=== PATIENT | female | born 1990 | race Caucasian/White ===

== ENCOUNTER 2022-03-18 05:02 | Day surgery (SDC) | payer OTHER ==
[2022-03-13 12:50] VITALS: BMI 24.7
[2022-03-18] MEDS ORDERED: MIDAZOLAM HCL 2 MG/2 ML SINGLE DOSE VIAL ONE (14:10)
[2022-03-18] MEDS ORDERED: ceFAZolin SODIUM 1 GM VIAL IVPB ONE (14:35)
[2022-03-18] MEDS ORDERED: oxyCODONE HCL 5 MG TABLET PO PRN ×2 (15:03)
[2022-03-18] MEDS ORDERED: ONDANSETRON 4 MG/2 ML VIAL IVPUSH PRN (15:03)
[2022-03-18] MEDS ORDERED: LACTATED RINGERS SOLUTION 1,000 ML IV SCH (15:15)
[2022-03-18 15:23] VITALS: TEMP 97.7
[2022-03-18 16:23] VITALS: BP 125/65; PULSE 85
== END 2022-03-18 16:25 | disposition home or self-care (01) ==
LOC: JASU-SURG 05:02
PROVIDERS: ATTEND Obstetrics & Gynecology
PROC: 10D17ZZ Extraction of Products of Conception, Retained, Via Natural or Artificial Opening (ICD-10-PCS; principal; 2022-03-18 11:00)
DX: O02.1 Missed abortion (principal); Z3A.09 9 weeks gestation of pregnancy
CPT/HCPCS: 86850; 86900; 86901; 88305-TC; 94760

== ENCOUNTER 2023-09-15 09:10 | Inpatient (IN) | payer OTHER ==
[2023-09-15 10:44] LABS: BASO % 0.6 % (0-2.0); EOS % 0.4 % (0-4.5); HEMATOCRIT 33.8 % (32.4-45.2); HEMOGLOBIN 10.9 GM/dL (10.7-15.3); LYMPH % 21.2 % (8-40); MCHC 32.2 g/dl (32.0-36.0); MEAN CELL VOLUME 74.6 fl (80-96); MEAN PLT VOLUME 7.6 fl (7.5-11.1); MONO % 4.8 % (3.8-10.2); PLATELET COUNT 376 10^3/uL (134-434); RBC 4.53 M/mm3 (3.60-5.2); RDW 17.4 % (11.6-15.6); WHITE BLOOD COUNT 10.5 K/mm3 (4.0-10.0)
[2023-09-15] MEDS ORDERED: CITRIC ACID/SODIUM CITRATE 30 ML UNIT-DOSE CUP PO ONE (10:47)
[2023-09-15 10:49] VITALS: BMI 32.5
[2023-09-15 10:58] LABS: ACTIVATED PTT 26.5 SECONDS (25.2-36.5); INR 0.96 (0.83-1.09); PROTHROMBIN TIME (PATIENT) 11.1 SEC (9.7-13.0)
[2023-09-15] MEDS ORDERED: ELECTROLYTE-148 SOLN 1,000 ML IV SCH (11:00)
[2023-09-15 11:07] LABS: CALCIUM 8.8 mg/dL (8.5-10.1)
[2023-09-15 11:08] LABS: BLOOD UREA NITROGEN 8.1 mg/dL (7-18)
[2023-09-15 11:11] LABS: CREATININE 0.6 mg/dL (0.55-1.3)
[2023-09-15] MEDS ORDERED: DEXTROSE 5%-LACTATED RINGERS 1,000 ML IV SCH (15:30)
[2023-09-15] MEDS ORDERED: KETOROLAC TROMETHAMINE 30 MG/1 ML VIAL ONE (15:35)
[2023-09-15] MEDS ORDERED: SODIUM CHLORIDE 0.9% P/F 10 ML VIAL IJ ONE (15:35)
[2023-09-15] MEDS ORDERED: morphine SULFATE/PF 1 MG/2 ML (2cc Syringe - QUVA) ONE (15:35)
[2023-09-15] MEDS ORDERED: ONDANSETRON 4 MG/2 ML VIAL ONE ×2 (15:35→20:21)
[2023-09-15] MEDS ORDERED: FENTANYL CITRATE/PF 50 MCG/ML VIAL ONE (15:35)
[2023-09-15] MEDS ORDERED: ceFAZolin SODIUM 1 GM VIAL ONE (15:35)
[2023-09-15] MEDS ORDERED: ePHEDrine SULFATE 50 MG/1 ML AMPULE ONE ×3 (15:36→16:01)
[2023-09-15] MEDS ORDERED: morphine SULFATE/PF 1 MG/2 ML (2cc Syringe - QUVA) IT ONE (15:48)
[2023-09-15] MEDS ORDERED: OXYTOCIN 30 UNITS in 0.9% NS 30 UNIT/500 ML INFUS.BAG IVPB ONE (16:14)
[2023-09-15] MEDS ORDERED: OXYTOCIN 20 UNITS in 0.9% NS 20 UNIT/1,000 ML INFUS.BAG IV ONE (16:15)
[2023-09-15 16:56] LABS: CORD BASE EXCESS -13.5 mmol/L (0-2); CORD PCO2 56.8 mmHg (30-78); CORD pH 7.094 (7.14-7.44)
[2023-09-15 16:58] LABS: CORD BASE EXCESS -15.4 mmol/L (0-2); CORD HCO3 17.6 mmHg (20-29); CORD PCO2 74.4 mmHg (30-78)
[2023-09-15 17:00] LABS: CORD pH 6.993 (7.14-7.44)
[2023-09-15] MEDS ORDERED: ONDANSETRON 4 MG/2 ML VIAL IVPB PRN (17:05)
[2023-09-15] MEDS ORDERED: IBUPROFEN 600 MG TABLET (FP) PO PRN (17:08)
[2023-09-15] MEDS ORDERED: OXYTOCIN 20 UNITS in 0.9% NS 20 UNIT/1,000 ML INFUS.BAG IV SCH ×2 (17:15→17:30)
[2023-09-15] MEDS ORDERED: BENZOCAINE 28 GM HEMORRHOIDAL OINTMENT TP PRN (17:26)
[2023-09-15] MEDS ORDERED: BENZOCAINE 20% 57 GM BOTTLE TP PRN (17:26)
[2023-09-15] MEDS ORDERED: WITCH HAZEL 50% (TUCKS) 40 PAD/JAR PAD TP PRN (17:26)
[2023-09-15] MEDS: ACETAMINOPHEN 1000 MG/100 ML BAG IVPB SCH ×2 (18:41→23:15)
[2023-09-15] MEDS ORDERED: SODIUM CHLORIDE 500 ML IV STA (18:43)
[2023-09-15 19:24] LABS: BASO % 0.2 % (0-2.0); HEMATOCRIT 27.9 % (32.4-45.2); LYMPH % 6.2 % (8-40); MCH 23.6 pg (25.7-33.7); MCHC 32.4 g/dl (32.0-36.0); MEAN PLT VOLUME 7.4 fl (7.5-11.1); MONO % 2.4 % (3.8-10.2); NEUT % 91.2 % (42.8-82.8); PLATELET COUNT 332 10^3/uL (134-434); RBC 3.82 M/mm3 (3.60-5.2); RDW 17.5 % (11.6-15.6); WHITE BLOOD COUNT 18.6 K/mm3 (4.0-10.0)
[2023-09-15 19:49] LABS: ANISOCYTOSIS 2+; MACROCYTOSIS 0
[2023-09-15] MEDS: SENNOSIDES/DOCUSATE COMBO (SENNA PLUS) TABLET (UD) PO SCH (23:23)
[2023-09-16] MEDS: CEFAZOLIN SODIUM 2 GM in DEXTROSE 5%-WATER 100 ML IVPB SCH ×3 (00:33→17:30)
[2023-09-16] MEDS: ACETAMINOPHEN 1000 MG/100 ML BAG IVPB SCH ×2 (06:00→11:54)
[2023-09-16] MEDS: HEPARIN NA (PORCINE) 5,000 UNITS/ML 1ML VIAL SQ SCH ×3 (06:10→21:24)
[2023-09-16] MEDS: SIMETHICONE 80 MG TAB.CHEW (FP) PO PRN ×2 (06:36→20:12)
[2023-09-16 07:35] LABS: BASO % 0.1 % (0-2.0); HEMATOCRIT 23.1 % (32.4-45.2); HEMOGLOBIN 7.1 GM/dL (10.7-15.3); LYMPH % 13.9 % (8-40); MCH 22.9 pg (25.7-33.7); MCHC 30.6 g/dl (32.0-36.0); MEAN CELL VOLUME 74.8 fl (80-96); MEAN PLT VOLUME 7.4 fl (7.5-11.1); MONO % 7.5 % (3.8-10.2); NEUT % 78.5 % (42.8-82.8); PLATELET COUNT 310 10^3/uL (134-434); RBC 3.09 M/mm3 (3.60-5.2); RDW 17.5 % (11.6-15.6); WHITE BLOOD COUNT 15.8 K/mm3 (4.0-10.0)
[2023-09-16] MEDS ORDERED: ENOXAPARIN NA (PORCINE) 40 MG/0.4 ML DISP.SYRIN SQ SCH (10:00)
[2023-09-16] MEDS: PRENATAL VITAMINS W/ FOLIC ACID TABLET (FP) PO SCH (10:25)
[2023-09-16] MEDS ORDERED: oxyCODONE HCL 5 MG TABLET PO PRN (16:00)
[2023-09-16] MEDS ORDERED: BISACODYL 10 MG SUPP.RECT RC PRN (17:05)
[2023-09-16] MEDS: ACETAMINOPHEN 325 MG TABLET (FP) PO PRN (20:16)
[2023-09-16] MEDS: SENNOSIDES/DOCUSATE COMBO (SENNA PLUS) TABLET (UD) PO SCH (21:24)
[2023-09-17] MEDS: SIMETHICONE 80 MG TAB.CHEW (FP) PO PRN (04:28)
[2023-09-17] MEDS: ACETAMINOPHEN 325 MG TABLET (FP) PO PRN (04:29)
[2023-09-17] MEDS: HEPARIN NA (PORCINE) 5,000 UNITS/ML 1ML VIAL SQ SCH ×2 (09:42→21:17)
[2023-09-17] MEDS: PRENATAL VITAMINS W/ FOLIC ACID TABLET (FP) PO SCH (09:42)
[2023-09-17] MEDS: FERROUS SO4 325 MG TABLET (FP) PO SCH ×2 (11:05→21:16)
[2023-09-17] MEDS: SENNOSIDES/DOCUSATE COMBO (SENNA PLUS) TABLET (UD) PO SCH (21:17)
[2023-09-18 07:50] LABS: BASO % 0.4 % (0-2.0); EOS % 1.4 % (0-4.5); HEMATOCRIT 24.8 % (32.4-45.2); HEMOGLOBIN 7.9 GM/dL (10.7-15.3); LYMPH % 19.5 % (8-40); MCHC 31.8 g/dl (32.0-36.0); MEAN CELL VOLUME 75.5 fl (80-96); MEAN PLT VOLUME 6.9 fl (7.5-11.1); MONO % 4.9 % (3.8-10.2); NEUT % 73.8 % (42.8-82.8); PLATELET COUNT 386 10^3/uL (134-434); RBC 3.29 M/mm3 (3.60-5.2); RDW 17.5 % (11.6-15.6); WHITE BLOOD COUNT 17.7 K/mm3 (4.0-10.0)
[2023-09-18 10:25] VITALS: BP 135/62; PULSE 86; RESP 16; TEMP 97.9
[2023-09-18] MEDS: PRENATAL VITAMINS W/ FOLIC ACID TABLET (FP) PO SCH (11:00)
[2023-09-18] MEDS: FERROUS SO4 325 MG TABLET (FP) PO SCH (11:00)
[2023-09-18] MEDS: HEPARIN NA (PORCINE) 5,000 UNITS/ML 1ML VIAL SQ SCH (11:00)
== END 2023-09-18 13:05 | disposition home or self-care (01) | DRG 540 ==
LOC: JLDR 09:10 → J3W 21:55
PROVIDERS: ADMIT Obstetrics & Gynecology; ATTEND Obstetrics & Gynecology
PROC: 10D00Z1 Extraction of Products of Conception, Low, Open Approach (ICD-10-PCS; principal; 2023-09-15)
DX: O36.63X0 Maternal care for excessive fetal growth, third trimester, not applicable or unspecified (principal); O24.429 Gestational diabetes mellitus in childbirth, unspecified control; O99.013 Anemia complicating pregnancy, third trimester; D64.9 Anemia, unspecified; O26.893 Other specified pregnancy related conditions, third trimester; Z3A.39 39 weeks gestation of pregnancy; O99.820 Streptococcus B carrier state complicating pregnancy; Z37.0 Single live birth
CPT/HCPCS: 36415; 36600; 80048; 82803; 82962; 85025; 85610; 85730; 86780; 86850; 86900; 86901; J1644